=== PATIENT | female | born 1990 ===

== ENCOUNTER 2016-10-02 16:50 | Day surgery (SDC) | payer OTHER ==
[2016-10-02] MEDS ORDERED: LACTATED RINGERS 1,000 ML ONE ×3 (17:37→20:50)
[2016-10-02 17:53] LABS: ABSOLUTE NEUTROPHIL COUNT 5.5 K/mm3 (1.8-7.7); BASO % 0.4 % (0.2-1.0); EOS # 0.3 (0.0-0.5); EOS % 3.7 % (0.9-2.9); HEMATOCRIT 35.5 % (37.0-47.0); HEMOGLOBIN 12.8 gm/l (12.0-16.0); IMM NEUT% 0.4 % (0-1); LYMPH # 2.5 (1.0-4.8); LYMPH % 26.7 % (15-45); MEAN CELL VOLUME 90.1 fl (81.0-99.0); MEAN CORPUSCULAR HEMOGLOBIN 32.5 pg (27.0-31.0); MEAN CORPUSCULAR HGB CONC 36.1 g/dl (33.0-37.0); MEAN PLATELET VOLUME 9.7 fl (7.4-10.4); MONO # 0.9 (0.0-0.8); MONO % 9.3 % (4-12); NEUT % 59.5 % (43-75); PLATELET COUNT 281 K/mm3 (130-400); RED CELL DISTRIBUTION WIDTH 11.7 % (11.5-14.5)
[2016-10-02 17:58] LABS: PH,URINE 6.5 (5.0-8.0); URINE BILIRUBIN NEGATIVE (NEGATIVE); URINE BLOOD 4+ (NEGATIVE); URINE GLUCOSE (UA) NEGATIVE (NEGATIVE); URINE LEUKOCYTE ESTERASE NEGATIVE (NEGATIVE); URINE NITRITE NEGATIVE (NEGATIVE); URINE PROTEIN 3+ (NEGATIVE); URINE UROBILINOGEN NORMAL (0-1 mg/dl)
[2016-10-02 17:59] LABS: URINE APPEARANCE BLOODY; URINE COLOR RED
[2016-10-02 18:03] LABS: URINE RBC >100 /hpf
[2016-10-02 18:04] LABS: URINE BACTERIA TRACE; URINE EPITHELIAL CELLS RARE /hpf
[2016-10-02] MEDS ORDERED: KETOROLAC TROMETHAMINE 30 MG/ML 1 ML VIAL ONE ×2 (19:23→20:18)
[2016-10-02] MEDS ORDERED: MIDAZOLAM HCL 5 MG/5 ML VIAL ONE (19:41)
[2016-10-02] MEDS ORDERED: FENTANYL 100 MCG/2 ML VIAL ONE (19:42)
[2016-10-02] MEDS ORDERED: CEFAZOLIN SODIUM 2 GRAM DUPLEX 2 G in Premix (D5W) 50 ml 1 EACH IV PRN (19:44)
[2016-10-02] MEDS ORDERED: LIDOCAINE 1% 2 ML VIAL ID PRN (19:44)
[2016-10-02] MEDS ORDERED: PROPOFOL 20 ML IV ONE (19:50)
[2016-10-02] MEDS ORDERED: DEXAMETHASONE SOD PHOS 4 MG/1 ML VIAL ONE (19:50)
[2016-10-02] MEDS ORDERED: ONDANSETRON 4 MG/2ML 2 ML VIAL ONE (19:50)
[2016-10-02] MEDS ORDERED: LIDOCAINE 2% (PRES FREE) 5 ML VIAL ONE (19:50)
[2016-10-02] MEDS ORDERED: CEFAZOLIN SODIUM 1,000 MG VIAL ONE (20:18)
[2016-10-02] MEDS ORDERED: OXYTOCIN 10 UNITS/ML VIAL ONE (20:18)
[2016-10-02] MEDS ORDERED: PROMETHAZINE HCL 25 MG/ML VIAL IM PRN (20:20)
[2016-10-02] MEDS ORDERED: MEPERIDINE 25 MG/ML SYRINGE IV PRN (20:20)
[2016-10-02] MEDS ORDERED: ATROPINE SULFATE 0.4 MG/1 ML VIAL IV PRN (20:20)
[2016-10-02] MEDS ORDERED: HYDROMORPHONE HCL 1 MG/ML SYRINGE IV PRN (20:20)
[2016-10-02] MEDS ORDERED: NALOXONE HCL 0.4 MG/ML VIAL IV PRN (20:20)
[2016-10-02] MEDS ORDERED: FENTANYL 100 MCG/2 ML VIAL IV PRN (20:20)
[2016-10-02] MEDS ORDERED: ONDANSETRON 4 MG/2ML 2 ML VIAL IV PRN (20:20)
[2016-10-02] MEDS ORDERED: OXYCODONE/ACETAMINOPHEN 5/325 MG TABLET PO PRN (20:29)
[2016-10-02] MEDS ORDERED: LACTATED RINGERS 1,000 ML IV SCH (20:30)
[2016-10-02] MEDS ORDERED: METHYLERGONOVINE MALEATE 0.2 MG/ML 1ML AMP ONE (20:37)
--- NOTE | 2016-10-02 20:49 | PCMBPN ---
Brief Post Op Note: Date of Procedure: 10/02/16 Start Time: Preoperative Diagnosis: 1. incomplete Postoperative Diagnosis: 1. Same Procedure: dilatation and curettage Surgeon: Buddy Yanez Assist: Anesthesia: ms asher, general Findings: external genitalia healthy, 10cc blood in vagina, cervix 1cm dilated, uterus 8 weeks and anteverted, adnexa negative, sounded to 9cm, 5cc curettings obtained Condition: stable Complications: none IV Fluids: mLs of LR Urine Output: 150 mLs Estimated Blood Loss: 50 mLs Tourniquet Time: N/A Specimens: products of conception passed in emergency room and currettings in operating room Implants: Drains: N/A patient tolerated procedure well and was returned to recovery room in stable condition.
[2016-10-02] MEDS ORDERED: METHYLERGONOVINE MALEATE 0.2 MG/ML 1ML AMP IM ONE (20:50)
[2016-10-02 21:59] VITALS: BP 136/75
[2016-10-03] MEDS ORDERED: IBUPROFEN 800 MG TABLET PO PRN (02:30)
--- NOTE | 2016-10-03 18:24 | OP ---
RAUL PEREZ : 1990 DATE OF OPERATION: October 02, 2016 OPERATION PERFORATION: DILATATION AND CURETTAGE. PREOPERATIVE DIAGNOSIS: Incomplete . POSTOPERATIVE DIAGNOSIS: Incomplete . SURGEON: Buddy Yanez M.D. ANESTHESIA: Ms Hong C.R.N.A., general anesthesia. DETAILS OF PROCEDURE: With the patient under general anesthesia and in the lithotomy position, the local area was prepared with Betadine and draped in the usual manner. The bladder was emptied of about 150 mL of clear yellow urine by straight catheterization. After a timeout was performed, exam under anesthesia revealed the external genitalia healthy. Vagina showed about 10 mL of blood present in the vagina. The cervix was 1 cm dilated. The uterus was 8 weeks size and anteverted. The adnexa negative. A duck-bill speculum was inserted into the vagina gently. The anterior lip of the cervix was grasped with a single prong tenaculum. The uterus was then sounded to 9 cm. The cervix was gradually dilated with Hegar dilators, and then curettage produced around 5 mL of endometrial curettings suggestive of products of conception and blood clots until a gritty sensation was appreciated over the entire endometrial cavity. A uterine forceps was inserted afterward and no additional tissue was removed. The single prong tenaculum was removed. The puncture sites on the cervix were cauterized with silver nitrate stick. There was no active bleeding noted, and at this point the speculum was removed, the uterus massaged, and then operation was terminated. The sponge and instrument count reported as correct. Estimated blood loss for the entire procedure was 50 mL. During the procedure, patient received Pitocin running in the IV and 2 g of Ancef were given to the patient prior to the onset of the procedure. She tolerated the procedure well and was returned to the recovery room in stable condition. FINAL DIAGNOSIS: As above.
--- NOTE | 2016-10-03 18:25 | DS ---
RAUL PEREZ : 1990 DISCHARGE SUMMARY DATE: October 02, 2016 HOSPITAL COURSE: Raul Ramos is a 26-year-old female admitted through the emergency room with active vaginal bleeding following passage of what she stated was a small fetus measuring approximately an inch in diameter. This occurred at home, on October 01. She presented to the emergency room with vaginal bleeding, and I was called to evaluate the patient.She was taken to the operating room for a dilation and curettage with a diagnosis of incomplete . She tolerated that procedure well, her postoperative course was uneventful and will be discharged home with Motrin and Percocet prescriptions. She was advised office visit in one weeks time and activities were explained to the patient prior to her going under anesthesia. She is O positive blood type. FINAL DIAGNOSIS: Incomplete .
--- NOTE | 2016-10-07 09:48 | SURGPATH ---
[facility] [address] [place] [id number] Patient Name: RAUL REMY MR#: [id number] : 1990 Gender: F Specimen #: [id number] Collected: 10/02/2016 Received: 10/06/2016 Reported: 10/07/2016 Submitting Phys: JESSENIA ALBRIGHT I Copy To Phys: [facility] VICTORINA NIX Clinical History / Pre-Operative Diagnosis: MISSED AB; profuse vaginal bleeding post demise 10 weeks Specimen Source / Surgical Procedure Performed: #1-PRODUCTS OF CONCEPTION; #2-PRODUCTS OF CONCEPTION Interpretation: 1. PRODUCTS OF CONCEPTION: - INFLAMED AND HEMORRHAGIC IMMATURE CHORIONIC VILLI 2. PRODUCTS OF CONCEPTION: - INFLAMED IMMATURE CHORIONIC VILLI Electronically Signed Out Aníbal Carias M.D. Gross Description: #1 The specimen is received in a formalin filled container labeled with the patient's name and "products of conception". An aggregate of thakkar tissue admixed with hemorrhagic material is 4.2 x 2.3 x 0.8 cm. There is no grossly recognizable or placental tissue. Totally embedded in cassettes 1A-1C. #2 The specimen is received in a formalin filled container labeled with the patient's name and "products of conception". A fusiform shaped portion of hemorrhagic red-thakkar tissue is 5.2 x 2.0 x 1.8 cm. The specimen is bivalved to reveal A 2.8 cm collapsed, smooth lined amniotic cavity. The surrounding adjacent tissue is spongy and pink-thakkar. There is no identifiable embryo. Three sales utility representative sections are submitted in cassettes 2A-2C. Reddy Fisher Microscopic Description: 1. The sections show necrotic and hemorrhagic immature chorionic villi and decidua. 2. The sections show necrotic and inflamed immature chorionic villi and decidua. Hydropic features are not identified. 1: 16563 2: 37764 O02.1
== END 2016-10-02 22:32 | disposition home or self-care (01) ==
LOC: ED 16:50 → SDC 19:31
PROVIDERS: ATTEND Obstetrics & Gynecology
PROC: 10D17ZZ Extraction of Products of Conception, Retained, Via Natural or Artificial Opening (ICD-10-PCS; principal; 2016-10-02)
DX: O03.1 Delayed or excessive hemorrhage following incomplete spontaneous abortion (principal); Z3A.10 10 weeks gestation of pregnancy
CPT/HCPCS: 59812; 84702; 85025; 87086; 81001; 86901; 99285 ×2; 96374; 96361 ×2; J0690; J3010; J1100; J2210; J2590; J1885 ×2; J2250; J2405; J7120 ×3